=== PATIENT | female | born 1945 | race Caucasian/White ===

== ENCOUNTER 2021-07-19 12:34 | Emergency (ER) | payer MEDICAID, MEDICARE ==
[2021-07-19 13:22] LABS: #Basophils 0.1 thou/uL (0.0-0.2); #Eosinphils 0.1 thou/uL (0.0-0.7); #Lymphocytes 1.5 thou/uL (1.20-3.40); #Monocytes 0.6 thou/uL (0.11-0.59); #Neutrophils 5.3 thou/uL (1.40-6.50); %Basophils 1.6 % (0.0-1.0); %Eosinophils 1.8 % (0.0-10.0); %Lymphocytes 19.6 % (21.0-51.0); %Monocytes 7.8 % (0.0-10.0); %Neutrophils 69.3 % (42.0-75.0); Hemoglobin 14.5 g/dL (12.0-16.0); Mean Corpuscular HGB CONC 32.6 g/dL (32.0-36.0); Mean Corpuscular Hemoglobin 33.5 pg (27.0-31.0); Mean Platelet Volume 6.4 fL (7.4-10.4); Platelet Count 271 thou/uL (130-400); RBC Distribution Width 12.5 % (11.5-14.5); Red Blood Cell (RBC) Count 4.33 mill/uL (4.20-5.40); White Blood Cell (WBC) Count 7.6 thou/uL (4.8-10.8)
[2021-07-19 13:43] LABS: ALT (SGPT) 20 U/L (8-55); AST (SGOT) 68 U/L (5-34); Albumin 4.4 g/dL (3.4-4.8); Alkaline Phosphatase 78 U/L (40-110); Anion Gap 20 mmol/L (10-20); BUN (Urea Nitrogen) 10 mg/dL (9.8-20.1); Bilirubin, Total 0.5 mg/dL (0.2-1.2); Calc. Creatinine Clearance 0 mL/min (70-130); Calcium 9.6 mg/dL (7.8-10.44); Carbon Dioxide 24 mmol/L (23-31); Chloride 90 mmol/L (98-107); Globulin 3.1 g/dL (2.4-3.5); Glucose 102 mg/dL (83-110); Lipase 56 U/L (8-78); Protein, Total 7.5 g/dL (5.8-8.1); Sodium 130 mmol/L (136-145)
[2021-07-19 14:48] LABS: Bilirubin Negative (Negative); Blood, Urine Trace (Negative); Clarity Clear (Clear); Glucose, Urine (Dipstick) Negative (Negative); Ketone, Urine Trace mg/dL (Negative); Leukocyte Trace (Negative); Nitrite Negative (Negative); Protein, Urine (Dipstick) Negative (Neg-Trace); Urobilinogen 0.2 mg/dL (Less than 2); pH, Urine 5.5 (5.0-9.0)
[2021-07-19 14:59] LABS: RBC/HPF 0-3 HPF (0-3); Specific Gravity, Urine 1.005 (1.002-1.036); WBC/HPF 0-3 HPF (0-3)
[2021-07-19 15:00] LABS: Squamous Epithelial 0-3 HPF (0-3)
[2021-07-19 18:00] LABS: SARS-CoV-2 NAA Rapid Test Not Detected (NotDetected)
== END 2021-07-19 20:19 | disposition short-term general hospital (02) ==
LOC: NAV ERS 12:34
DX: R41.82 Altered mental status, unspecified (principal); I10 Essential (primary) hypertension; J44.9 Chronic obstructive pulmonary disease, unspecified; E78.5 Hyperlipidemia, unspecified; F17.210 Nicotine dependence, cigarettes, uncomplicated
CPT/HCPCS: 70450; 80053; 80307; 82140; 82553; 83690; 83880; 84484; 85025; 93005; 94760; 99285; U0002; 81003; 81015

== ENCOUNTER 2022-02-04 11:57 | Emergency (ER) | payer MEDICARE ==
[2022-02-04] MEDS ORDERED: Albuterol Sulfate 2.5 mg/0.5 ml Neb ONE (12:47)
== END 2022-02-04 13:30 | disposition home or self-care (01) ==
LOC: NAV ERS 11:57
DX: J44.1 Chronic obstructive pulmonary disease with (acute) exacerbation (principal); L03.032 Cellulitis of left toe; I10 Essential (primary) hypertension; E78.5 Hyperlipidemia, unspecified; F17.210 Nicotine dependence, cigarettes, uncomplicated; Z79.82 Long term (current) use of aspirin; Z79.51 Long term (current) use of inhaled steroids; Z79.899 Other long term (current) drug therapy
CPT/HCPCS: 93005; 94640; J7611; J7620

== ENCOUNTER 2022-02-13 11:31 | Outpatient (CLI) | payer MEDICARE | END 2022-02-13 11:32 | disposition home or self-care (01) | LOC: NAV RAD 11:31 | PROVIDERS: ATTEND Nurse Practitioner Family | DX: L03.032 Cellulitis of left toe (principal); M81.0 Age-related osteoporosis without current pathological fracture; M19.072 Primary osteoarthritis, left ankle and foot ==

== ENCOUNTER 2022-04-29 15:29 | Outpatient (CLI) | payer MEDICARE | END 2022-04-29 15:30 | disposition home or self-care (01) | LOC: NAV RAD 15:29 | PROVIDERS: ATTEND Nurse Practitioner Family | DX: L03.032 Cellulitis of left toe (principal); M19.072 Primary osteoarthritis, left ankle and foot; M79.89 Other specified soft tissue disorders ==